=== PATIENT | male | born 1970 | race Caucasian/White ===

== ENCOUNTER 2017-10-06 16:16 | Emergency (ER) | payer OTHER ==
[~2017-10-06] VITALS: Ht 160 cm; Wt 65.8 kg
[2017-10-06 16:31] VITALS: Ht 160 cm; Wt 65.8 kg
[2017-10-06] MEDS ORDERED: ALENDRONATE SOD70 M2 PO (17:19)
[2017-10-06] MEDS ORDERED: ATORVASTATIN CA40 M1 PO (17:20)
[2017-10-06] MEDS ORDERED: ASPIR 8181 MG PO (17:20)
[2017-10-06] MEDS ORDERED: ENALAPRIL MALEA10 MG PO (17:20)
[2017-10-06] MEDS ORDERED: NOR5 PO (17:20)
[2017-10-06] MEDS ORDERED: FLUDROCORTISON0.1 MG PO (17:21)
[2017-10-06] MEDS ORDERED: LEVOTHYROXINE0.1 M2 PO (17:22)
[2017-10-06] MEDS ORDERED: NATURE'S BLEND500 M3 PO (17:22)
[2017-10-06] MEDS ORDERED: RANITIDINE HYD150 M2 PO (17:22)
[2017-10-06] MEDS ORDERED: VITAMIN D32000 I2 PO (17:23)
[2017-10-06 17:27] LABS: BASOPHIL % 0.3 % (0-2); PLATELET COUNT 233 x10^3mcL (130-400); RED CELL DISTRIBUTION WIDTH 13.4 % (11.5-14.5)
[2017-10-06 17:36] LABS: CALCIUM 9.7 mg/dL (8.5-10.1); CARBON DIOXIDE 30.2 mmol/L (21-32); CHLORIDE SERUM 97 mmol/L (98-107); CREATININE SERUM 1.1 mg/dL (0.7-1.3); GFR1 > 60 mL/min; GLUCOSE SERUM 133 mg/dL (74-106); POTASSIUM SERUM 3.7 mmol/L (3.5-5.1); SODIUM SERUM 135 mmol/L (136-145)
[2017-10-06 17:41] LABS: ALBUMIN 3.7 g/dL (3.4-5.0); ALKALINE PHOSPHATASE 80 U/L (46-116); ALT/SGPT 49 U/L (16-63); AST/SGOT 46 U/L (15-37); BILIRUBIN TOTAL 0.59 mg/dL (0.20-1.00); TOTAL PROTEIN, SERUM 7.7 g/dL (6.4-8.2)
[2017-10-06 19:08] VITALS: BP 115/71
== END 2017-10-06 19:08 | disposition home or self-care (01) ==
LOC: ED 16:16
PROVIDERS: Emergency Medicine
DX: E16.2 Hypoglycemia, unspecified (principal)
CPT/HCPCS: 82962; J2405; J3490; Q0162